=== PATIENT | male | born 1950 | race Caucasian/White ===

== ENCOUNTER 2017-06-28 15:33 | Outpatient (CLI) | payer MEDICARE ==
[~2017-06-28 15:33] MED LIST: Iopamidol 370 76% 100 ML VIAL ONE
--- NOTE | 2017-06-28 19:51 | CT ---
CT ANGIO OF THE CHEST 06/28/17 Multiple axial tomograms obtained through the chest with multiplanar reconstruction and 3D postproces sing following angio protocol with IV enhancement. According to the technologist, the patient refused repeat exam. There is contrast extravasation or leakage, according to the technologist. There is inadequate vascul ar opacification. This is a nondiagnostic study for pulmonary embolism. The lungs appear clear with no infiltrate. There is a calcified granuloma in the right middle lobe. M ediastinum is unremarkable. No adenopathy. There is a calcified right hilar lymph node. There is a mass involving the right lobe of the thyroid which is heterogeneous and measures up to 4.8 cm AP dimension. Images through the upper abdomen show no acute finding. IMPRESSION: 1. Nondiagnostic exam for pulmonary embolus. 2. Mass involving the right lobe of the thyroid. 3. No acute lung process. POS: LIN
== END 2017-06-28 15:34 | disposition home or self-care (01) ==
LOC: RAD-BREN 15:33
DX: R93.8 Abnormal findings on diagnostic imaging of other specified body structures (principal); E07.9 Disorder of thyroid, unspecified; I26.99 Other pulmonary embolism without acute cor pulmonale
CPT/HCPCS: 71275